=== PATIENT | male | born 1995 | race Caucasian/White ===

== ENCOUNTER 2021-10-21 18:16 | Day surgery (SDC) | payer BC, OTHER ==
[2021-10-21 18:27] VITALS: BMI 31.1
[2021-10-21] MEDS ORDERED: SODIUM CHLORIDE 1,000 ML IV STA (21:43)
[2021-10-21] MEDS ORDERED: ACETAMINOPHEN 1000 MG/100 ML BAG IVPB ONE (21:43)
[2021-10-21] MEDS ORDERED: ACETAMINOPHEN INJECTION 100 ML IVPB ONE (22:30)
[2021-10-21 23:06] LABS: BASO % 0.3 % (0-2.0); EOS % 0.4 % (0-4.5); HEMATOCRIT 48.9 % (35.4-49); HEMOGLOBIN 15.8 GM/dL (11.7-16.9); LYMPH % 15.5 % (8-40); MCH 28.4 pg (25.7-33.7); MCHC 32.3 g/dl (32.0-35.9); MEAN CELL VOLUME 88.1 fl (80-96); MEAN PLT VOLUME 9.8 fl (7.5-11.1); MONO % 10.5 % (3.8-10.2); NEUT % 73.3 % (42.8-82.8); PLATELET COUNT 245 10^3/uL (134-434); RBC 5.55 M/mm3 (4.00-5.60); RDW 12.5 % (11.9-15.9); WHITE BLOOD COUNT 13.2 K/mm3 (4.0-10.0)
[2021-10-21 23:07] LABS: URINE APPEARANCE CLEAR; URINE BILIRUBIN NEGATIVE (NEGATIVE); URINE COLOR YELLOW; URINE GLUCOSE (UA) NEGATIVE (NEGATIVE); URINE KETONE 4+ (NEGATIVE); URINE LEUK ESTERASE NEGATIVE (NEGATIVE); URINE NITRITE NEGATIVE (NEGATIVE); URINE PROTEIN NEGATIVE (NEGATIVE); URINE UROBILINOGEN 0.2 mg/dL (0.2-1.0)
[2021-10-21 23:26] LABS: CALCIUM 9.9 mg/dL (8.5-10.1)
[2021-10-21 23:27] LABS: ALBUMIN 4.1 g/dl (3.4-5.0); BLOOD UREA NITROGEN 8.6 mg/dL (7-18)
[2021-10-21 23:30] LABS: CREATININE 0.8 mg/dL (0.55-1.3)
[2021-10-21 23:31] LABS: BILIRUBIN,TOTAL 0.5 mg/dL (0.2-1); TOT PROT 7.8 g/dl (6.4-8.2)
[2021-10-22] MEDS ORDERED: PIPERACILLIN/TAZOB 3.375 GM 3.375 GM in DEXTROSE 5%-WATER - 50 ML IVPB ONE ×3 (01:03→13:30)
[2021-10-22] MEDS ORDERED: morphine CARPU-JECT 4 MG/1 ML DISP.SYRIN IVPUSH PRN (01:18)
[2021-10-22] MEDS ORDERED: PIPERACILLIN/TAZOB 3.375 GM 3.375 GM/50 ML BAG IVPB ONE (01:25)
[2021-10-22] MEDS: SODIUM CHLORIDE 1,000 ML IV SCH ×4 (01:33→19:17)
[2021-10-22] MEDS ORDERED: DEXTROSE 5%-WATER - 50 ML IVPB ONE ×2 (08:22→13:21)
[2021-10-22] MEDS ORDERED: PIPERACILLIN/TAZOBACTAM 3.375 GM VIAL IVPB ONE ×2 (08:22→13:21)
[2021-10-22 08:30] LABS: BASO % 0.3 % (0-2.0); EOS % 0.6 % (0-4.5); HEMATOCRIT 41.3 % (35.4-49); HEMOGLOBIN 13.8 GM/dL (11.7-16.9); LYMPH % 18.8 % (8-40); MCH 29.7 pg (25.7-33.7); MCHC 33.5 g/dl (32.0-35.9); MEAN CELL VOLUME 88.7 fl (80-96); MEAN PLT VOLUME 9.8 fl (7.5-11.1); MONO % 10.9 % (3.8-10.2); NEUT % 69.4 % (42.8-82.8); PLATELET COUNT 211 10^3/uL (134-434); RBC 4.65 M/mm3 (4.00-5.60); RDW 12.4 % (11.9-15.9); WHITE BLOOD COUNT 8.5 K/mm3 (4.0-10.0)
[2021-10-22 08:48] LABS: ALBUMIN 3.4 g/dl (3.4-5.0); BLOOD UREA NITROGEN 8.2 mg/dL (7-18); CALCIUM 8.7 mg/dL (8.5-10.1)
[2021-10-22 08:51] LABS: CREATININE 0.7 mg/dL (0.55-1.3)
[2021-10-22 08:52] LABS: BILIRUBIN,TOTAL 0.6 mg/dL (0.2-1); TOT PROT 6.4 g/dl (6.4-8.2)
[2021-10-22 09:25] LABS: ACTIVATED PTT 33.7 SECONDS (25.2-36.5); INR 1.24 (0.83-1.09); PROTHROMBIN TIME (PATIENT) 14.3 SEC (9.7-13.0)
[2021-10-22] MEDS ORDERED: morphine SULFATE 4 MG/ML VIAL IVPUSH PRN ×2 (12:41→17:46)
[2021-10-22] MEDS ORDERED: BUPIVACAINE HCL/PF 0.25% (2.5MG/ML) 10 ML VIAL ONE (15:27)
[2021-10-22] MEDS ORDERED: ROCURONIUM BROMIDE 50 MG/5 ML SYRINGE ONE (15:36)
[2021-10-22] MEDS ORDERED: PROPOFOL 20 ML ONE (15:36)
[2021-10-22] MEDS ORDERED: ONDANSETRON 4 MG/2 ML VIAL IVPUSH PRN ×2 (15:46→17:46)
[2021-10-22] MEDS ORDERED: PROMETHAZINE HCL 25 MG/1 ML VIAL IVPUSH PRN ×2 (15:46→17:46)
[2021-10-22] MEDS ORDERED: LACTATED RINGERS SOLUTION 1,000 ML IV SCH (16:00)
[2021-10-22] MEDS ORDERED: ACETAMINOPHEN 1000 MG/100 ML BAG IVPB ONE (16:07)
[2021-10-22] MEDS ORDERED: FENTANYL CITRATE/PF 50 MCG/ML VIAL ONE ×5 (16:10→17:34)
[2021-10-22] MEDS ORDERED: MIDAZOLAM HCL 2 MG/2 ML SINGLE DOSE VIAL ONE (16:10)
[2021-10-22] MEDS ORDERED: HYDROmorphone HCl 2 MG/ML VIAL ONE (16:39)
[2021-10-22] MEDS ORDERED: NEOSTIGMINE METHYLSULFATE 0.5 MG/ML - 10 ML MDV ONE (16:55)
[2021-10-22] MEDS ORDERED: ACETAMINOPHEN INJECTION 100 ML IVPB ONE (18:07)
[2021-10-22] MEDS: LACTATED RINGERS SOLUTION 1,000 ML IV SCH (19:17)
[2021-10-22] MEDS ORDERED: KETOROLAC TROMETHAMINE 30 MG/1 ML VIAL IVPUSH PRN (23:00)
[2021-10-22] MEDS: guaiFENesin 200 MG/10 ML 10 ML UNIT-DOSE CUPS PO PRN (23:53)
[2021-10-23] MEDS: SODIUM CHLORIDE 1,000 ML IV SCH ×3 (02:11→15:42)
[2021-10-23 09:18] LABS: BASO % 0.1 % (0-2.0); HEMATOCRIT 40.8 % (35.4-49); HEMOGLOBIN 13.3 GM/dL (11.7-16.9); LYMPH % 9.5 % (8-40); MCHC 32.6 g/dl (32.0-35.9); MEAN CELL VOLUME 88.9 fl (80-96); MEAN PLT VOLUME 9.6 fl (7.5-11.1); NEUT % 81.4 % (42.8-82.8); PLATELET COUNT 233 10^3/uL (134-434); RBC 4.59 M/mm3 (4.00-5.60); RDW 12.5 % (11.9-15.9); WHITE BLOOD COUNT 10.5 K/mm3 (4.0-10.0)
[2021-10-23 09:51] LABS: CALCIUM 8.7 mg/dL (8.5-10.1)
[2021-10-23 09:52] LABS: ALBUMIN 2.9 g/dl (3.4-5.0); BLOOD UREA NITROGEN 6.5 mg/dL (7-18)
[2021-10-23 09:55] LABS: CREATININE 0.7 mg/dL (0.55-1.3)
[2021-10-23 09:56] LABS: BILIRUBIN,TOTAL 0.4 mg/dL (0.2-1); TOT PROT 5.8 g/dl (6.4-8.2)
[2021-10-23] MEDS: AMOX TR/POT CLAV 875MG/125MG TABLETS (FP) PO SCH (16:41)
[2021-10-23] MEDS: guaiFENesin 200 MG/10 ML 10 ML UNIT-DOSE CUPS PO PRN (22:26)
[2021-10-23] MEDS ORDERED: SODIUM CHLORIDE 1,000 ML IV SCH (23:30)
[2021-10-24 07:03] VITALS: BP 109/57; PULSE 89; TEMP 97.7
[2021-10-24] MEDS: AMOX TR/POT CLAV 875MG/125MG TABLETS (FP) PO SCH (09:50)
[2021-10-24] MEDS: LACTATED RINGERS SOLUTION 1,000 ML IV SCH (09:51)
[2021-10-24 09:55] LABS: CALCIUM 8.6 mg/dL (8.5-10.1)
[2021-10-24 09:56] LABS: BLOOD UREA NITROGEN 8.9 mg/dL (7-18)
[2021-10-24 09:59] LABS: CREATININE 0.8 mg/dL (0.55-1.3)
== END 2021-10-24 16:35 | disposition home or self-care (01) ==
LOC: JER 18:16 → UNDOADMIN 10-22 01:03 → JASUSAT 10-22 01:03 → JERBED 10-22 01:03 → J7W 10-22 06:53 → JASUSAT 10-24 16:35
PROVIDERS: ATTEND Specialist
PROC: 0DTJ4ZZ Resection of Appendix, Percutaneous Endoscopic Approach (ICD-10-PCS; principal; 2021-10-22 16:00)
DX: K35.80 Unspecified acute appendicitis (principal); Z87.09 Personal history of other diseases of the respiratory system; R04.2 Hemoptysis
CPT/HCPCS: 36415; 71045-TC-FY; 71275-TC; 74176-TC; 80048; 80053; 81003; 83690; 85025; 85379; 85610; 85730; 86850; 86900; 86901; 94760; 99285-25; C9803-CS; Q9967; U0003; U0005

== ENCOUNTER 2021-10-27 11:42 | Emergency (ER) | payer BC, OTHER ==
[2021-10-27 11:48] VITALS: BP 120/75; PULSE 85; TEMP 98; BMI 31.3
== END 2021-10-27 13:42 | disposition home or self-care (01) ==
LOC: JERFT 11:42 → JER 11:42 → JERFT 13:42
DX: I82.611 Acute embolism and thrombosis of superficial veins of right upper extremity (principal)
CPT/HCPCS: 93971; 99283-25

== ENCOUNTER 2022-11-03 18:04 | Emergency (ER) | payer BC, OTHER ==
[2022-11-03 18:15] VITALS: BP 135/77; PULSE 93; RESP 17; TEMP 98; BMI 29.1
[2022-11-03 20:47] LABS: BASO % 0.4 % (0-2.0); EOS % 0.5 % (0-4.5); HEMATOCRIT 47.2 % (35.4-49); HEMOGLOBIN 15.5 GM/dL (11.7-16.9); LYMPH % 23.9 % (8-40); MCH 29.6 pg (25.7-33.7); MCHC 32.9 g/dl (32.0-35.9); MEAN CELL VOLUME 89.8 fl (80-96); MEAN PLT VOLUME 10.3 fl (7.5-11.1); MONO % 11.3 % (3.8-10.2); NEUT % 63.9 % (42.8-82.8); PLATELET COUNT 214 10^3/uL (134-434); RBC 5.25 M/mm3 (4.00-5.60); RDW 12.4 % (11.9-15.9); WHITE BLOOD COUNT 8.1 K/mm3 (4.0-10.0)
[2022-11-03 20:51] LABS: POTASSIUM 4.3 mmol/L (3.5-5.1)
[2022-11-03 20:52] LABS: BLOOD UREA NITROGEN 12.9 mg/dL (7-18); CALCIUM 9.7 mg/dL (8.5-10.1)
[2022-11-03 20:56] LABS: CREATININE 0.9 mg/dL (0.55-1.3)
== END 2022-11-03 21:15 | disposition home or self-care (01) ==
LOC: JER 18:04
DX: K64.8 Other hemorrhoids (principal)
CPT/HCPCS: 36415; 80048; 85025; 99283-25